=== PATIENT | female | born 1985 | race Caucasian/White ===

== ENCOUNTER → 2024-06-07 | Outpatient (CLI) | payer SELFPAY ==
--- OUTSIDE RECORDS SUMMARY | 2024-06-07 13:27 | XMS RPT_ITS | CCD ---
Author Organization [facility] Care Team Providers Care Outside Machinist Apprentice Name Role Phone GERARDO BLAS Unavailable Unavailable PEECHAKARA, SEENIA Unavailable Unavailable PEECHAKARA, SEENIA Unavailable Unavailable PEECHAKARA, SEENIA Unavailable Unavailable SHRAVAN JIMENEZ Attending Unavailable UpMary bergeron CNM Unavailable [phone] Nathaly Zhao LPN Unavailable Unavailable Pablito Arreola RN Unavailable Unavailable Unavailable Unavailable Unavailable Unavailable Allergies Allergy Classification Reported Allergen(s) Allergy Type Date of Onset Reaction(s) Facility (1 source) GLUTEN FLOUR; Translations: [GLUTEN FLOUR] Propensity to adverse reactions to food (disorder) 7 AOF [facility] Repository (2 sources) Gluten [facility], [facility]. Medications Current Medications Medication Drug Class(es) Dates Sig (Normalized) Sig (Original) Progesterone (4 sources) Progesterone Start: 05-25-2024 progesterone micronized (bulk) 100 % powder ; 400 Milligram vaginal at night before bed for 90 days Quantity: 90 {Suppository} Refills: 2 Ordered: 25-May-2024 ESTIVEN Schneider Start: 25-May-2024 Comments: patient would like bio identical progesterone suppository please Start: 11-01-2022 End: 05-24-2024 progesterone micronized (bul k) 100 % powder ; 100 Milligram as directed for 90 days Quantity: 90 {Suppository} Refills: 1 Ordered: 24-May-2024 VIVIANA Arreola Start: 01-Nov-2022 End: 24-May-2024 Status: Inactive Comments: patient would like bio identical progesterone suppository- this is a change in dose, patient going to use as directed Comment on above: patient would like b io identical progesterone suppository- this is a change in dose, patient going to use as directed patient would like b io identical progesterone suppository please Completed/Discontinued Medications Medication Drug Class(es) Dates Sig (Normalized) Sig (Original) 2 ml rho(d) immune globulin, human 750 unt/ml prefilled syringe (4 sources) Human Immunoglobulin G Start: 02-03-2023 End: 02-04-2023 rho(D) immune globulin 1,500 unit (300 mcg)/2 mL injection syringe ; 2 (two) mL one time dose for 1 days Quantity: 2 {Milliliter} Refills: 0 Ordered: 03-Feb-2023 Jennie ESTIVEN Crystal Tena Start: 03-Feb-2023 End: 04-Feb-2023 Status: Inactive Problems Active Problems Problem Classification Problem Date Documented Da te Episodic/Chronic Immunizations and screening for infectious disease (8 sources) Encounter for prophylactic Rho(D) immune globulin; Translations: [Need for prophylactic immunotherapy] 05-24-2024 Episodic Other complications of (8 sources) Diabetes insipidus; Translations: [Endocrine, nutritional and metabolic diseases complicating , unspecified trimester] 05-24-2024 Episodic Comment on above: diagnosed with last baby, no current symptoms Other complications of (20 sources) H/O: miscarriage; Translations: [Supervision of with other poor reproductive or obstetric history, unspecified trimester] 05-24-2024 Episodic Comment on above: previously used prog esterone supplement for low levels, wants level checked and supplement sent to [facility] (previously used) in [place] Other endocrine disorders (1 source) Diabetes insipidus; Translations: [Diabetes insipidus] Onset: 04-19-2017 Chronic Other female genital disorders (8 sources) Recurrent loss; 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 current ] 05-21-2022 Episodic Comment on above: states tested for cl otting disorders- negative Other infections; including parasitic (8 sources) History of Lyme disease; Translations: [Personal history of other infectious and parasitic diseases] 05-21-2022 Episodic Other nervous system disorders (8 sources) H/O: epilepsy; Translations: [Personal history of other diseases of the nervous system and sense organs] 05-21-2022 Episodic Other nutritional; endocrine; and metabolic disorders (8 sources) H/O: endocrine disorder; Translations: [Personal history of other endocrine, nutritional and metabolic disease] 05-21-2022 Episodic Comment on above: states dx with seria l testing by saliva and doctor Other screening for suspected conditions (not mental disorders or infectious disease) (20 sources) Thyroid hormone tests abnormal; Translations: [Other specified abnormal findings of blood chemistry] 05-24-2024 Episodic Comment on above: history of abnormal thyroid level, supplements taken Unclassified (4 sources) Abortions, spontaneous 05-24-2024 Comment on above: 9. 10. Unclassified (4 sources) Number of Children 05-24-2024 Comment on above: 5. 6. Unclassified (4 sources) Number of Pregnancies 05-24-2024 Comment on above: 15 17 Unclassified (4 sources) Vaginal deliveries 05-24-2024 Comment on above: 5. 6. 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 She is currently . States cycles are 28 days. Based on that her LMP would be around apr 22, but pt can't remember exact date. States yesterday would be first day of missed cycle. Denies any bleeding/spotting at this time. She is a G-15, P-5, A-9, L-5. Patient states she has lyme disease- untreated-states past the point of antibiotics, Adrenal insufficiency, and hx of gestational diabetes. States she has not had progesterone levels checked in over a year. 05-21-2022 Unclassified (3 sources) stock and station agent patient - History of low progesterone and miscarriage, wants progesterone supplementation for 05-24-2024 Results Test Name Value Interpretation Reference Range Facility PROGESTERONEon 05-25-2024 PROGESTERONE 31.4 ng/mL Normal [facility] Comment on above: Result Comment: Refe rence Ranges Female Follicular Phase < 1.0 Luteal Phase 2.6-21.5 Post menopausal < 0.5 1st Trimester 4.1-34.0 2nd Trimester 24.0-76.0 3rd Trimester 52.0-302.0 Performed By: #### 7 45 #### [facility] [address] [place] [address] Pe Teacher: Praful Machado MD No Panel Informationon 05-24 PROGESTERONE 31.4 ng/mL Normal [facility]. Laboratory - Chemistry and C hemistry - challengeon 06-18-2022 TSH Qn 2.88 m[IU]/L Normal [facility], [facility]. No Panel Informationon 06-18 PROGESTERONE 41.7 ng/mL Normal [facility]. No Panel Informationon 05-21 PROGESTERONE 2.9 ng/mL Normal [facility]. TSH W/REFLEX TO FT4 3.51 {mIU/L} Normal [facility]. Lead, Bloodon 11-15-2018 Lead, Blood <1.2 Normal 0.0-4.9 [facility] Comment on above: Performed By: #### L EAD2 #### [facility] Chemistry [address] [address] Arginine Vasopressinon 04-19 Arginine Vasopressin <0.5 Normal 0.0-6.9 [facility] Comment on above: Result Comment: (NOT E)INTERPRETIVE INFORMATION: Arginine Vasopressin HormoneTest developed and characteristics determined by [facility]. See Compliance Statement D: Crono/CSPerformed by [facility],[address] [place] [address] wgx.Crono, Jericho Gray MD, Lab. Director Performed By: #### A VAS ####[facility] [place], [place] [phone] CNNURSEon 04-19-2017 CNNURSE Nurse Visit (ENDOMN) -------RODGER LAUREANO ([id number]) 1985 FDate Time Provider Department04/19/17 8:30 AM NURSE ENDO MAIN ENDOMN During your visit today, we recorded the following information about you:Dafne Colorado RN, RN 04/19/2017 4:49 PM Signed Rodger Laureano is a 32 year old female presenting today for a WaterDeprivation test.Heparin lock established left arm with #22 angiocath.Patient supine for 30 minutes noBaseline ADH/sodium/osmolality drawn and unrine osmolaity collected at 9:30 AMTIME BP-P WEIGHT(KG) SERUMNA SERUM OSMO URINE VOL URINE OSMO9:30 AM 119/73-70 46.8 143 300 150 22244:30 AM 108/69-67 46.7 146 301 50 45142:30 AM 106/69-72 46.6 145 301 40 36035:30 PM 119/73-72 46.5 145 411 70 6400:30 PM 121/74-72 46.4 141 133 62 6001:30 PM 114/74-73 46.4 146 294 25 611Data above reviewed with Dr. Villatoro. Test may be stopped and patient senthome.Heparin lock D/C'd. Patient discharged home without complications at 3:00 PMSupervising Physician: Dr. Bianca Colorado, VIVIANAReferring Provider: ROHAN LAZARO V [[id number]]Allergies As of Date: 04/19/2017 Noted Allergy ReactionGLUTEN FLOUR 01/30/2017 16 - UnknownDate Reviewed: 04/19/2017Reviewed by: Dafne (Rn) VIVIANA Colorado - Fully AssessedPrimary Visit Diagnosis:Polyuria [R35.8]Order(s):SODIUM/NA BLD [SQNA] Order #: [id number]. #:[id number] OSMOLALITY BLD [SQOSM] Order #: [id number]. #:[id number] OSMOLALITY URINE [SQUOSM] Order #: [id number]. #:[id number] ADH/ARGININE VASOPRS [SQADH] Order #: [id number] FUTURE ADH/ARGININE VASOPRS [SQADH] Order #: [id number]. #:[id number] SODIUM/NA BLD [SQNA] Order #: [id number]. #:[id number] OSMOLALITY BLD [SQOSM] Order #: [id number]. #:[id number] OSMOLALITY URINE [SQUOSM] Order #: [id number]. #:[id number] SODIUM/NA BLD [SQNA] Order #: [id number]. #:[id number] OSMOLALITY BLD [SQOSM] Order #: [id number]. #:[id number] OSMOLALITY URINE [SQUOSM] Order #: [id number]. #:[id number] T4/FTI/T4U [XDC0ODO] Order #: [id number]. #:[id number] TSH BLD [SQTSH] Order #: [id number]. #:[id number] T4 FREE/FREE THYROX [SQFT4] Order #: [id number]. #:[id number] COMP METABOLIC PANEL [SQCMP] Order #: [id number] FUTURE OSMOLALITY URINE [SQUOSM] Order #: [id number]. #:[id number] OSMOLALITY BLD [SQOSM] Order #: [id number]. #:[id number] SODIUM/NA BLD [SQNA] Order #: [id number]. #:[id number] SODIUM/NA BLD [SQNA] Order #: [id number]. #:[id number] OSMOLALITY BLD [SQOSM] Order #: [id number]. #:[id number] OSMOLALITY URINE [SQUOSM] Order #: [id number]. #:[id number] SODIUM/NA BLD [SQNA] Order #: [id number]. #:[id number] OSMOLALITY BLD [SQOSM] Order #: [id number]. #:[id number] OSMOLALITY URINE [SQUOSM] Order #: [id number]. #:[id number] escriptions as of 04/19/2017 Sig: ORAL ELECTROLYTES ORAL Take by mouth. MULTIVITAMIN TABLET Take 1 tablet by mouth once d*Problem List As Of Date 04/19/2017 Noted Resolved Electrolyte abnormality [E87.8] INVALID FOR*01/31/2017 Hypokalemia [E87.6] INVALID FOR*01/31/2017 Hypomagnesemia [E83.42] INVALID FOR*01/31/2017 Hypocalcemia [E83.51] INVALID FOR*01/31/2017 Dizziness [R42] INVALID FOR*01/31/2017 Cerebral edema (HCC) [G93.6] INVALID FOR*01/31/2017 Breast feeding status of mother [Z39.1] INVALID FOR* Status:Closed by DAFNE COLORADO on 04/19/17 Normal [facility] Comp Metabolic Panelon 04-19 Alanine aminotransferase (ALT) 17 U/L Normal 7-38 [facility] Comment on above: Performed By: #### O SM, CMP, TSH, FT4, T4FTI ####[facility] [place], [place] [phone] Albumin 4.7 g/dL Normal 3.9-4.9 [facility] Comment on above: Performed By: #### O SM, CMP, TSH, FT4, T4FTI ####[facility] [address] [place], [place] [phone] Alkaline phosphatase (ALP) 63 U/L Normal 32-117 [facility] Comment on above: Performed By: #### O SM, CMP, TSH, FT4, T4FTI ####[facility], [place] [phone] Anion gap 20 mmol/L High 9-18 [facility] Comment on above: Performed By: #### O SM, CMP, TSH, FT4, T4FTI ####[place] [address] [phone] Aspartate aminotransferase (AST) 17 U/L Normal 13-35 [facility] Comment on above: Performed By: #### O SM, CMP, TSH, FT4, T4FTI ####[place] [address] [phone] Bilirubin (total) 0.7 mg/dL Normal 0.2-1.3 [facility] Comment on above: Performed By: #### O SM, CMP, TSH, FT4, T4FTI ####[place] [address] [address] [phone] Calcium 9.8 mg/dL Normal 8.5-10.2 [facility] Comment on above: Performed By: #### O SM, CMP, TSH, FT4, T4FTI ####[place] [address] [address] [phone] Chloride 99 mmol/L Normal 97-105 [facility] Comment on above: Performed By: #### O SM, CMP, TSH, FT4, T4FTI ####[place] [address] [address] [phone] CO2 26 mmol/L Normal 22-30 [facility] Comment on above: Performed By: #### O SM, CMP, TSH, FT4, T4FTI ####[place] [address] [address] [phone] Creatinine 0.68 mg/dL Normal 0.58-0.96 [facility] Comment on above: Performed By: #### O SM, CMP, TSH, FT4, T4FTI ####[place] [address] [address] [phone] eGFR (non-black) mL/min/{1.73_m2} Normal [facility] Comment on above: Performed By: #### O SM, CMP, TSH, FT4, T4FTI ####[facility], [place] [phone] Result Comment: eGFR (Estimated GFR) Units of measure: mL/min/1.73 meters squaredeGFR is derived from the reexpressed MDRD Study equation using the following parameters: serum creatinine, age, gender and race. The creatinine assay has been calibrated to be traceable to IDMS.An eGFR <60 mL/min/1.73m2 for >3 months is consistent with chronic kidney disease. Refer to KDOQI guidelines for clinical interpretation.In patients with unstable renal function, e.g. those with acute kidney injury, the eGFR may not accurately reflect actual GFR. Glucose mass conc 60 mg/dL Low 74-99 [facility] Comment on above: Result Comment: The [place] Diabetes Association (ADA) provides guidance for cutoff values for fasting glucose and random glucose. The ADA defines fasting as no caloric intake for at least 8 hours. Fasting plasma glucose results between 100 to 125 mg/dL indicate increased risk for diabetes (prediabetes).Fasting plasma glucose results greater than or equal to 126 mg/dL meet the criteria for diagnosis of diabetes. In the absence of unequivocal hyperglycemia, results should be confirmed by repeat testing. In a patient with classic symptoms of hyperglycemia or hyperglycemic crisis, random plasma glucose results greater than or equal to 200 mg/dL meet the criteria for diagnosis of diabetes.Reference: Standards of Medical Care in Diabetes 2016, [place] Diabetes Association. Diabetes Care. 2016.39(Suppl 1). Performed By: #### O SM, CMP, TSH, FT4, T4FTI ####[facility] [place], [place] [phone] Potassium molar conc 3.5 mmol/L Low 3.7-5.1 [facility] Comment on above: Performed By: #### O SM, CMP, TSH, FT4, T4FTI ####[facility] [place], [place] [phone] Protein 7.8 g/dL Normal 6.3-8.0 [facility] Comment on above: Performed By: #### O SM, CMP, TSH, FT4, T4FTI ####[place] [address] [address], [place] [phone] Sodium 145 mmol/L High 136-144 [facility] Comment on above: Performed By: #### O SM, CMP, TSH, FT4, T4FTI ####[address] [phone] Urea nitrogen 10 mg/dL Normal 7-21 [facility] Comment on above: Performed By: #### O SM, CMP, TSH, FT4, T4FTI ####[address] [phone] Folate, Serumon 04-19-2017 Folate, Serum >20.0 Normal >4.7 [facility] Comment on above: Result Comment: A re sult of > 20 ng/mL is not necessarilyindicative of a pathologic or treatablecondition: it reflects a limitation of thetest methodology.Assay reference range: 4.8 to 24.2 ng/mL.Suitable for detection of folate deficiency.Reference:Folate III (Folate III) [package insert V 1.0English].[facility], [place], [place]: June2015. Performed By: #### B 12, SERFOL ####[address] [phone]#### BIODIN ####[facility] [address] [place], [place] [phone] Free T4on 04-19-2017 Thyroxine (T4) free 1.4 ng/dL Normal 0.9-1.7 [facility] Comment on above: Performed By: #### O SM, CMP, TSH, FT4, T4FTI ####[address] [phone] Thyroxine (T4) free 1.3 ng/dL Normal 0.9-1.7 [facility] Comment on above: Performed By: #### N A, FT4, T4FTI, OSM, TSH ####[place] [address] [place], [place] [phone] Iodideon 04-19-2017 Iodide 75 ng/mL Normal 40-92 [facility] Comment on above: Result Comment: (NOT E) ADDITIONAL INFORMATION This test was developed and its performance characteristicsdetermined by [facility] in a manner consistent with CLIArequirements. This test has not been cleared or approved bythe U.S. Food and Drug Administration. Performed By: #### B 12, SERFOL ####[address] [phone]#### BIODIN ####[address] [place], [place] [phone] Osmolalityon 04-19-2017 Osmolality 294 mOsm/kg Normal 275-300 [facility] Comment on above: Performed By: #### O SM, CMP, TSH, FT4, T4FTI ####[address] [phone] Osmolality 294 mOsm/kg Normal 275-300 [facility] Comment on above: Performed By: #### N A, OSM ####[address] [phone] Osmolality 299 mOsm/kg Normal 275-300 [facility] Comment on above: Performed By: #### N A, OSM ####[address] [phone] Osmolality 301 mOsm/kg High 275-300 [facility] Comment on above: Performed By: #### N A, OSM ####[address] [phone] Osmolality 301 mOsm/kg High 275-300 [facility] Comment on above: Performed By: #### N A, FT4, T4FTI, OSM, TSH ####[place] [address] [address], [place] [phone] Osmolality 301 mOsm/kg High 275-300 [facility] Comment on above: Performed By: #### N A, OSM ####[place] [address] [address], [place] [phone] Osmolality 300 mOsm/kg Normal 275-300 [facility] Comment on above: Performed By: #### N A, OSM ####[place] [address] [address], [place] [phone] Osmolality, Urineon 04-19-20 17 Osmolality, Urine 585 mOsm/kg Normal 50-1200 [facility] Comment on above: Performed By: #### U OSM ####[place] [address], [place] [phone] Osmolality, Urine 611 mOsm/kg Normal 50-1200 [facility] Comment on above: Performed By: #### U OSM ####[place] [address] [address], [place] [phone] Osmolality, Urine 586 mOsm/kg Normal 50-1200 [facility] Comment on above: Performed By: #### U OSM ####[place] [address], [place] [phone] Osmolality, Urine 587 mOsm/kg Normal 50-1200 [facility] Comment on above: Performed By: #### U OSM ####[place] [address], [place] [phone] Osmolality, Urine 560 mOsm/kg Normal 50-1200 [facility] Comment on above: Performed By: #### U OSM ####[place] [address] [address], [place] [phone] Osmolality, Urine 530 mOsm/kg Normal 50-1200 [facility] Comment on above: Performed By: #### U OSM ####[facility] [address] [place], [place] [phone] Osmolality, Urine 451 mOsm/kg Normal 50-1200 [facility] Comment on above: Performed By: #### U OSM ####[facility] [address] [place], [place] [phone] PROGRESSon 04-19-2017 PROGRESS HNO ID: [id number] thor: Dafne (Rn) Miroslava, RNService: (none)Author Type: Registered NurseType: Progress NotesFiled: 04/19/2017 4:49 PMNote Text: Rodger Laureano is a 32 year old female presenting today for a WaterDeprivation test.Heparin lock established left arm with #22 angiocath.Patient supine for 30 minutes noBaseline ADH/sodium/osmolality drawn and unrine osmolaity collected at9:30 AMTIME BP-P WEIGHT(KG)SERUM NA SERUM OSMO URINE VOL URINE OSMO9:30 AM 119/73-70 46.8 143 300 150 96928:30 AM 108/69-67 46.7 146 301 50 28030:30 AM 106/69-72 46.6 145 301 40 77333:30 PM 119/73-72 46.5 145 758 71 1583:30 PM 121/74-72 46.4 141 283 28 0925:30 PM 114/74-73 46.4 146 294 25 611Data above reviewed with Dr. Villatoro. Test may be stopped and patientsent home.Heparin lock D/C'd. Patient discharged home without complications at 3:00PMSupervising Physician: Dr. Bianca [place], VIVIANA Normal [facility] PROGRESS HNO ID: [id number] thor: Noris Durbin: (none)Author Type: PhysicianType: Progress NotesFiled: 04/19/2017 9:33 AMNote Text:Patient of Dr. Araya for water deprivation testIs having menstrual periodI contacted labor relations analyst - protein and carbohydrates from menstrual flowmight affect urine osm, not sure to what degreeI informed Dr. Peechakara and patientBecause of traveling distance and insurance, decision was to go ahead andproceed with water deprivation test Normal [facility] Sodiumon 04-19-2017 Sodium 146 mmol/L High 136-144 [facility] Comment on above: Performed By: #### N A, OSM ####[place] [address] [address] [place] [phone] Sodium 141 mmol/L Normal 136-144 [facility] Comment on above: Performed By: #### N A, OSM ####[place] [address] [address] [place] [phone] Sodium 145 mmol/L High 136-144 [facility] Comment on above: Performed By: #### N A, OSM ####[place] [address] [address] [place] [phone] Sodium 145 mmol/L High 136-144 [facility] Comment on above: Performed By: #### N A, FT4, T4FTI, OSM, TSH ####[place] [address] [address] [place] [phone] Sodium 146 mmol/L High 136-144 [facility] Comment on above: Performed By: #### N A, OSM ####[place] [phone] Sodium 143 mmol/L Normal 136-144 [facility] Comment on above: Performed By: #### N A, OSM ####[place] [phone] T4/FTIon 04-19-2017 FTI 7.3 ug/dL Normal 5.3-10.8 [facility] Comment on above: Performed By: #### O SM, CMP, TSH, FT4, T4FTI ####[place] [address] [place] [phone] T4 7.1 ug/dL Normal 5.5-10.2 [facility] Comment on above: Performed By: #### O SM, CMP, TSH, FT4, T4FTI ####[address] [phone] T4 Uptake 0.97 Normal 0.91-1.19 [facility] Comment on above: Performed By: #### O SM, CMP, TSH, FT4, T4FTI ####[place] [phone] FTI 6.5 ug/dL Normal 5.3-10.8 [facility] Comment on above: Performed By: #### N A, FT4, T4FTI, OSM, TSH ####[place] [phone] T4 6.4 ug/dL Normal 5.5-10.2 [facility] Comment on above: Performed By: #### N A, FT4, T4FTI, OSM, TSH ####[place] [phone] T4 Uptake 0.98 Normal 0.91-1.19 [facility] Comment on above: Performed By: #### N A, FT4, T4FTI, OSM, TSH ####[address] [phone] TSHon 04-19-2017 Thyroid stimulating hormone (TSH) 1.190 uU/mL Normal 0.400-5.500 [facility] Comment on above: Result Comment: If t he patient is , TSH reference range varies by gestational period:First Trimester 0.100-2.500 uU/mLSecond Trimester 0.200-3.000 uU/mLThird Trimester 0.300-3.000 uU/mLReferences: 1. Berger, Cristofer M, Soren BRONSON, et al. Management of Thyroid Dysfunction during and : An Endocrine Society Clinical Practice Guideline. J Clin Endocrinol Metab, 2012:97:6139-0127. 2. Noe GARDNER. Overview of thyroid disease in . UpToDate. 2015. Accessed on January 23, 2016. Performed By: #### O SM, CMP, TSH, FT4, T4FTI ####[address] [id number] [place], [place] [phone] Thyroid stimulating hormone (TSH) 1.390 uU/mL Normal 0.400-5.500 [facility] Comment on above: Result Comment: If t he patient is , TSH reference range varies by gestational period:First Trimester 0.100-2.500 uU/mLSecond Trimester 0.200-3.000 uU/mLThird Trimester 0.300-3.000 uU/mLReferences: 1. Novak L, Cristofer M, Soren BRONSON, et al. Management of Thyroid Dysfunction during and : An Endocrine Society Clinical Practice Guideline. J Clin Endocrinol Metab, 2012:97:3316-6279. 2. Noe GARDNER. Overview of thyroid disease in . . 2015. Accessed on January 23, 2016. Performed By: #### N A, FT4, T4FTI, OSM, TSH ####[id number] [place], [place] [phone] Vitamin B12on 04-19-2017 Cobalamins (Vitamin B12) 1757 pg/mL High 211-946 [facility] Comment on above: Performed By: #### B 12, SERFOL ####[id number] [place], [place] [phone]#### BIODIN ####[address] [place] [phone] CNOVon 03-18-2017 CNOV Office Visit (STED) -----RODGER LAUREANO ([id number]) 1985 FDate Time Provider Department03/18/17 11:40 AM ROHAN LAZARO During your visit today, we recorded the following information about you: Temperature Pulse Respiration Blood pressure 98.5 degrees 79/minute 18/minute 111/68 Weight Last Period 49.4 kg 02/15/17Ernestine Graham Ma 03/18/2017 11:30 AM [facility] [phone] HOURS: Lab is open 7:30am to 6:00pm , 7:30am to 5:00pm Fridays and open8:00am-12:00pm on Saturdays.PHARMACY HOURS: Tuesday through Tuesday 8:00am - 6:00pm.Routine Lab Orders 60 days after they are entered. If your lab ordersexpire, you may be required to wait in the lab while they are reinstatedFUTURE ORDERS are lab tests to be completed on the ?EXPECTED? date. Theseorders 60 days after the expected date.STANDING ORDERS are recurring orders with an expiration date. The intervalwill indicate how often the test should be completed.FASTING LAB means nothing to eat or drink (except water) 10-12 hours beforeyour blood is drawn.Rohan Lazaro MD 03/18/2017 12:51 PM SignedNEW PATIENTConsulted by: Dr Latif Complaint: Concern for possible Diabetes insipidusHPI: This is a 32 year old female who presents with polyuria and polydipsiaand dizzinessShe has 5 kids : 6, 5, 3, 18 months, 4 monthsMiscarriages in betweenNursing for all of them all alongRegular periods -- starts back 1-2 months after child birthDuration for above complaints : feels going on since she started having kidsSeverity:moderate getting severeAssociated symptoms: dizzinessmodifying factors:Fluid intake per day: she brought detailed chart logging her fluid intake andurine output 24 hr that she did at homeUrine out put/frequency per day: she drinks to thirst, room temp water.Gets up 2-3 times at night to go to bathroom as she feels bladder is too fullAug 1st ANDamp;2nd12 L in ---ANDgt; 13L outAug 9 ANDamp;10 (as seked to restrict fluid to 1.5 gallos per day her herphysician)5 L in and 7 L outAug 10ANDamp;1112 L in and 12 L outH/o granulomatous disease:noH/o brain surgery/trauma: noAny overt he counter supplements: pre natals , Vit D, Adrenal compound for 1year as she was told her cortisol elvels were low and was started on itFamily hisotry:not significantPAST MEDICAL HISTORY:PAST MEDICAL HISTORYDiagnosis Date- PolyuriaPAST SURGICAL HISTORY: PAST SURGICAL HISTORYNo date: NONEFAMILY HISTORY:FAMILY HISTORY Other [OTHER] Father Comment: Father had a heart valve surgerySOCIAL HISTORY:Social HistorySubstance Use Topics- Smoking status: Never Smoker- Smokeless tobacco: Not on file- Alcohol use Not on fileMEDICATIONS:Current Outpatient Prescriptions:ORAL ELECTROLYTES ORAL Take by mouth.multivitamin tablet Take 1 tablet by mouth once daily.iv contrast (radiology procedure) MRI Pituitary Inject, intravenously, oncefor 1 dose. No IV access, insert saline lock prior to the beginning ofsedation, infusion, injection of imaging exam. Discontinue saline lock postexam. If Pt. has a central line or IVAD, may access for administrationaccording to line specific nursing protocol. Once exam is complete flush lineand de-access according to line specific nursing protocol in the MR contrastadministration guidelines link.No current facility-administered medications for this visit.ALLERGIES:ALLERGIESAl lergen Reactions- Gluten Flour UnknownREVIEW OF SYSTEMS:GENERAL: No weight loss, malaise or feversHEENT: Negative for frequent or significant headaches, SEE HPIRESPIRATORY: Negative for cough, hemoptysis, wheezing, COPD, dyspnea orshortness of breathCARDIOVASCULAR: Negative for chest pain, leg swelling, hypertension, CHF orpalpitationsMUSCULOSKELET AL: Negative for joint pain or swelling, back pain or muscle painSKIN: Negative for lesions, rash, and itchingENDOCRINE: Negative for cold or heat intolerance, polyuria, polydipsia andgoiterNEURO: No history of headaches, syncope, paralysis, seizures or tremorsAll other reviewed and negative other than HPI.She reports muscle aches and joint aches in the past but resolved nowPHYSICAL EXAM:BP 111/68 (BP Site: Right Arm, BP Position: Sitting, BP Cuff Size: RegularAdult) Pulse 79 Temp 36.9 ?C (98.5 ?F) (Oral) Resp 18 Wt 49.4 kg (109lb) LMP 02/15/2017 (Approximate) BMI 20.6 kg/m2Body mass index is 20.6 kg/(m2).General Appearance: Well appearing, alert, in no acute distress, well-hydrated,well nourished..Skin: Skin color, texture, turgor normal, no suspicious rashes or lesions.Eyes: Anicteric sclera. Pupils are equally round and reactive to light.Extraocular movements are intact. .Neck: Supple, no adenopathy; thyroid symmetric, normal size, no bruits.Lungs: Lungs clear to auscultation. No wheezing, rhonchi, rales.Heart: RRR without murmur, gallop, or rubs. No ectopy.Abdomen: Normal abdominal exam, Abdomen soft, non-tender. Bowel sounds normal.No masses, organomegaly.Extremities: No deformities, edema, skin discoloration, clubbing or cyanosis.Good capillary refill. .Musculoskeletal: No joint swelling, deformity, or tenderness.Peripheral Pulses: Normal.Neurologic: Gait normal. Reflexes normal and symmetric. Sensation grosslyintact..LAB:TSH (uU/mL)Date Value04/07/2015 3.710 ]Hemoglobin (g/dL)Date Value01/31/2017 14.6 Hematocrit (%)Date Value01/31/2017 43.9 WBC (k/uL)Date Value01/31/2017 9.57 Platelet Count (k/uL)Date Value01/31/2017 321 Potassium (mmol/L)Date Value01/31/2017 3.4 Sodium (mmol/L)Date Value01/31/2017 143 Magnesium (mg/dL)Date Value01/30/2017 2.3 Creatinine (mg/dL)Date Value01/31/2017 0.79 BUN (mg/dL)Date Value01/31/2017 8 Glucose (mg/dL)Date Value01/31/2017 100 No results found for: CHOL, HDL, LDL, TGNo results found for: RJF5OPm components found for: TESTOAST (U/L)Date Value01/31/2017 20 ALT (U/L)Date Value01/31/2017 28 ] Radiology:reviewed CT brain Other: reviewed work up while in hospita;Component Latest Ref Rng ANDamp; Units 01/30/2017Cortisol Basal ug/dL 6.4Cortisol 30 min ug/dL 24.8Cortisol 60 min ug/dL 30.8Interpretation (ACTHST) A peak value of at least 18 ug/dL is a normal responseto cortrosyn stimulation.Component Latest Ref Rng ANDamp; Units 01/31/2017Albumin 3.9 - 4.9 g/dL 5.1 (H)Calcium 8.5 - 10.2 mg/dL 9.9Bilirubin, Total 0.2 - 1.3 mg/dL 0.6Alkaline Phosphatase 32 - 117 U/L 72AST 13 - 35 U/L 20Glucose 74 - 99 mg/dL 100 (H)BUN 7 - 21 mg/dL 8Creatinine 0.58 - 0.96 mg/dL 0.79Sodium 136 - 144 mmol/L 143Potassium 3.7 - 5.1 mmol/L 3.4 (L)Chloride 97 - 105 mmol/L 99CO2 22 - 30 mmol/L 26Anion Gap 9 - 18 mmol/L 18ALT 7 - 38 U/L 28eGFR- ANDgt;60eGFR-All Other Races . ANDgt;60WBC 3.70 - 11.00 k/uL 9.57RBC 3.90 - 5.20 m/uL 4.66Hemoglobin 11.5 - 15.5 g/dL 14.6Hematocrit 36.0 - 46.0 % 43.9MCV 80.0 - 100.0 fL 94.2MCH 26.0 - 34.0 pG 31.3MCHC 30.5 - 36.0 g/dL 33.3RDW-CV 11.5 - 15.0 % 12.9Platelet Count 150 - 400 k/uL 321MPV 9.0 - 12.7 fL 9.8Absolute nRBC 0.00 k/uL 0.00Period hrUrine Volume 24 hour mLCollection Start DateCollection Start TimeCollection End DateCollection End TimeCalcium, Urine Timed 4.2 - 12.5 mg/hrSodium, Urine Timed 2 - 9 mmol/hrPotassium, Urine Timed 1 - 4 mmol/hrMagnesium, 24 Hr Urine 12.0 - 291.0 mg/24 HoursCreatinine, Urine Timed 0.03 - 0.08 g/hrOsmolality 275 - 300 mOsm/kg 293ASSESSMENT :32 year old female with symtoms and signs suspicious for:Possible differentials are primary polydipsia Versus partial diabetesinsipidus secondary to multiple pregnanciesOf significance urine osm was 75 with serum osm of 293Had put out 7L urine while in the hospital--water access was not restricted atthe timeNo known renal issuesRECOMMENDATION:1Water deprivation test--to be arranged at main campus2 labs as ordered3 MRI pitFOLLOW UP:TBDAdvised patient that I will call or send letter re: lab results or release labresults via JumpStarthart If patient does not hear from me regarding lab resultswithin 1-2 weeks of having them obtained, patient is to call me.The patient is to continue to follow up with his/her PCP and with otherconsultants regarding his/her other medical problems.I will communicate by either mailing or electronically routing a copy oftoday's office note to the primary care physician Gerardo Blas andconsulting physician Cheryl Cota Provider: SELF [200]Allergies As of Date: 03/18/2017 Noted Allergy ReactionGLUTEN FLOUR 01/30/2017 16 - UnknownDate Reviewed: 03/18/2017Reviewed by: Ernestine Graham Ma - Fully AssessedReason for Visit: New Patient [172] Cmt: rule out diabetes insipidusPrimary Visit Diagnosis: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 No IV access, insert saline lock prior to the beginning of sedation, infusion, injection of imaging exam. Discontinue saline lock post exam. If Pt. has a central line or IVAD, may access for administration according to line specific nursing protocol. Once exam is complete flush line and de-access according to line specific nursing protocol in the MR contrast administration guidelines link.Disp: 1 EachRfl: 0 TSH BLD [SQTSH] Order #: [id number] FUTURE T4 FREE/FREE THYROX [SQFT4] Order #: [id number] FUTURE T4/FTI/T4U [QZB7TVW] Order #: [id number] FUTURE COMP METABOLIC PANEL [SQCMP] Order #: [id number] FUTURE OSMOLALITY BLD [SQOSM] Order #: [id number] FUTURE OSMOLALITY URINE [SQUOSM] Order #: [id number] FUTUREPrescriptions as of 03/18/2017 Sig: ORAL ELECTROLYTES ORAL Take by mouth. MULTIVITAMIN TABLET Take 1 tablet by mouth once d* IV CONTRAST (RADIOLOGY PROCED* MRI Pituitary Inject, intrave*Problem List As Of Date 03/18/2017 Noted Resolved Electrolyte abnormality [E87.8] INVALID FOR*01/31/2017 Hypokalemia [E87.6] INVALID FOR*01/31/2017 Hypomagnesemia [E83.42] INVALID FOR*01/31/2017 Hypocalcemia [E83.51] INVALID FOR*01/31/2017 Dizziness [R42] INVALID FOR*01/31/2017 Cerebral edema (HCC) [G93.6] INVALID FOR*01/31/2017 Breast feeding status of mother [Z39.1] INVALID FOR* Other instructions from your clinician: [facility] FACTS [phone] LAB HOURS: Lab is open 7:30am to 6:00pm , 7:30am to 5:00pm Fridays and open 8:00am-12:00pm on Saturdays. PHARMACY HOURS: Tuesday through Tuesday 8:00am - 6:00pm. Routine Lab Orders 60 days after they are entered. If your lab orders , you may be required to wait in the lab while they are reinstated FUTURE ORDERS are lab tests to be completed on the ?EXPECTED? date. These orders 60 days after the expected date. STANDING ORDERS are recurring orders with an expiration date. The interval will indicate how often the test should be completed. FASTING LAB means nothing to eat or drink (except water) 10-12 hours before your blood is drawn.Prescriptions ordered this encounter Disp Refills Start End IV CONTRAST (RADIOLOGY PROCEDURE) 1 Ea* 0 03/18/2017 03/19/2017 Class: In Office Sig: MRI Pituitary Inject, intravenously, once for 1 dose. No IV access, insert saline lock prior to the beginning of sedation, infusion, injection of imaging exam. Discontinue saline lock post exam. If Pt. has a central line or IVAD, may access for administration according to line specific nursing protocol. Once exam is complete flush line and de-access according to line specific nursing protocol in the MR contrast administration guidelines link.Follow-up and Disposition History RecordedLetter Lindamitalilenin Mack Georgi for the Release of Medical InformationFrom Other Healthcare FacilitiesPatient's Name: Claytontamanna Giron Georgi #: [id number] #: [id number] Date of : 1985Telephone Number: [phone] (home) Address: [address] [place], [place] [address]Current Address of Physician:Name: ___Street: ___City: State: Zip: Physician's Telephone #: Reason for Disclosure: (Reason for disclosure must be completed prior to processing)Past Dates of Treatment: _Release Medical Information to: MAIL INFORMATION TO:Dr. Rohan CleaningAl[facility]any [facility] [place], [place] [address]Pzhanjnmo: [phone] i hereby authorize to release the health informationindicated below that is contained in my patient records to [facility]. I understand and acknowledge that this may includetreatment for physical and mental illness, alcohol/drug abuse, and/orHIV/AIDS test results or diagnoses. This authorization does not includepermission to release outpatient Psychotherapy Notes (*) as defined below.The release of Psychotherapy Notes requires a separate authorization.*Psychotherap y Notes are defined as notes that document private, joint,group, or family counseling sessions that are from the rest of apatient?s medical record. Emergency Department Reports Pathology Reports Discharge Summary Laboratory Reports History AND Physical EMG Reports EKGs Oper ative Reports Physical/Occup ations Therapy Report x_Other(Specify)allThi s consent is subject to revocation at any time except to the extent theaction has been taken thereon.This authorization and consent will one year from the date ofauthorization written below.Your health care (or payment for care) will not be affected by whether or notyou sign this authorization. Once your health care information is released,redisclosure of your health care information by the Recipient may no longerbe protected by law.Signature of Patient/Legal Guardian: Printe d Name: Date: Re lationship if other than Patient: If other than patient's signature, a copy of legal paperwork verifying thepatient's personal real estate representative MUST accompany the request (i.e.. Courtappointed guardian, durable power pc technician for health care). For a deceasedpatient: A certificate coupled with executor or records administrator of estatepaperwork must accompany authorization. Exception: parent signing for patientunder the age of 18.For a patient, a court entry or order appointing a fiduciary,executor, or records administrator or letters of appointment received from ProbateCourt must accompany an authorization signed by the ,ed individual. If theestate has not been probated, a certificate is required coupled withthe documents naming the records administrator or executor of the estate. Revision:08/30/2011Encounter Number: [id number] Status:Closed by ROHAN LAZARO MD on 03/18/17 [facility] PROGRESSon 03-18-2017 PROGRESS HNO ID: [id number] thor: KIM Arroyoervice: (none)Author Type: PhysicianType: Progress NotesFiled: 03/18/2017 12:51 PMNote Text:NEW PATIENTConsulted by: Dr Latif Complaint: Concern for possible Diabetes insipidusHPI: This is a 32 year old female who presents with polyuria andpolydipsia and dizzinessShe has 5 kids : 6, 5, 3, 18 months, 4 monthsMiscarriages in betweenNursing for all of them all alongRegular periods -- starts back 1-2 months after child birthDuration for above complaints : feels going on since she started havingkidsSeverity:moderate getting severeAssociated symptoms: dizzinessmodifying factors:Fluid intake per day: she brought detailed chart logging her fluid intakeand urine output 24 hr that she did at homeUrine out put/frequency per day: she drinks to thirst, room temp water.Gets up 2-3 times at night to go to bathroom as she feels bladder is toofullAug 1st [id number] L in ---> 13L outAug 9 AND10 (as seked to restrict fluid to 1.5 gallos per day her herphysician)5 L in and 7 L outAug [id number] L in and 12 L outH/o granulomatous disease:noH/o brain surgery/trauma: noAny overt he counter supplements: pre natals , Vit D, Adrenal compound for1 year as she was told her cortisol elvels were low and was started on itFamily hisotry:not significantPAST MEDICAL HISTORY:PAST MEDICAL HISTORYDiagnosis Date- PolyuriaPAST SURGICAL HISTORY: PAST SURGICAL HISTORYNo date: NONEFAMILY HISTORY:FAMILY HISTORY Other [OTHER] Father Comment: Father had a heart valve surgerySOCIAL HISTORY:Social HistorySubstance Use Topics- Smoking status: Never Smoker- Smokeless tobacco: Not on file- Alcohol use Not on fileMEDICATIONS:Current Outpatient Prescriptions:ORAL ELECTROLYTES ORAL Take by mouth.multivitamin tablet Take 1 tablet by mouth once daily.iv contrast (radiology procedure) MRI Pituitary Inject, intravenously,once for 1 dose. No IV access, insert saline lock prior to the beginningof sedation, infusion, injection of imaging exam. Discontinue saline lockpost exam. If Pt. has a central line or IVAD, may access foradministration according to line specific nursing protocol. Once exam iscomplete flush line and de-access according to line specific nursingprotocol in the MR contrast administration guidelines link.No current facility-administered medications for this visit.ALLERGIES:ALLERGIESAl lergen Reactions- Gluten Flour UnknownREVIEW OF SYSTEMS:GENERAL: No weight loss, malaise or feversHEENT: Negative for frequent or significant headaches, SEE HPIRESPIRATORY: Negative for cough, hemoptysis, wheezing, COPD, dyspnea orshortness of breathCARDIOVASCULAR: Negative for chest pain, leg swelling, hypertension, CHFor palpitationsMUSCULOSKELETAL : Negative for joint pain or swelling, back pain or musclepainSKIN: Negative for lesions, rash, and itchingENDOCRINE: Negative for cold or heat intolerance, polyuria, polydipsia andgoiterNEURO: No history of headaches, syncope, paralysis, seizures or tremorsAll other reviewed and negative other than HPI.She reports muscle aches and joint aches in the past but resolved nowPHYSICAL EXAM:BP 111/68 (BP Site: Right Arm, BP Position: Sitting, BP Cuff Size: RegularAdult) Pulse 79 Temp 36.9 ?C (98.5 ?F) (Oral) Resp 18 Wt 49.4 kg(109 lb) LMP 02/15/2017 (Approximate) BMI 20.6 kg/m2Body mass index is 20.6 kg/(m2).General Appearance: Well appearing, alert, in no acute distress,well-hydrated, well nourished..Skin: Skin color, texture, turgor normal, no suspicious rashes or lesions.Eyes: Anicteric sclera. Pupils are equally round and reactive to light.Extraocular movements are intact. .Neck: Supple, no adenopathy; thyroid symmetric, normal size, no bruits.Lungs: Lungs clear to auscultation. No wheezing, rhonchi, rales.Heart: RRR without murmur, gallop, or rubs. No ectopy.Abdomen: Normal abdominal exam, Abdomen soft, non-tender. Bowel soundsnormal. No masses, organomegaly.Extremities: No deformities, edema, skin discoloration, clubbing orcyanosis. Good capillary refill. .Musculoskeletal: No joint swelling, deformity, or tenderness.Peripheral Pulses: Normal.Neurologic: Gait normal. Reflexes normal and symmetric. Sensation grosslyintact..LAB:TSH (uU/mL)Date Value04/07/2015 3.710 ]Hemoglobin (g/dL)Date Value01/31/2017 14.6 Hematocrit (%)Date Value01/31/2017 43.9 WBC (k/uL)Date Value01/31/2017 9.57 Platelet Count (k/uL)Date Value01/31/2017 321 Potassium (mmol/L)Date Value01/31/2017 3.4 Sodium (mmol/L)Date Value01/31/2017 143 Magnesium (mg/dL)Date Value01/30/2017 2.3 Creatinine (mg/dL)Date Value01/31/2017 0.79 BUN (mg/dL)Date Value01/31/2017 8 Glucose (mg/dL)Date Value01/31/2017 100 No results found for: CHOL, HDL, LDL, TGNo results found for: QUF6VRx components found for: TESTOAST (U/L)Date Value01/31/2017 20 ALT (U/L)Date Value01/31/2017 28 ] Radiology:reviewed CT brain Other: reviewed work up while in hospita;Component Latest Ref Rng AND Units 01/30/2017Cortisol Basal ug/dL 6.4Cortisol 30 min ug/dL 24.8Cortisol 60 min ug/dL 30.8Interpretation (ACTHST) A peak value of at least 18 ug/dL is a normalresponse to cortrosyn stimulation.Component Latest Ref Rng AND Units 01/31/2017Albumin 3.9 - 4.9 g/dL 5.1 (H)Calcium 8.5 - 10.2 mg/dL 9.9Bilirubin, Total 0.2 - 1.3 mg/dL 0.6Alkaline Phosphatase 32 - 117 U/L 72AST 13 - 35 U/L 20Glucose 74 - 99 mg/dL 100 (H)BUN 7 - 21 mg/dL 8Creatinine 0.58 - 0.96 mg/dL 0.79Sodium 136 - 144 mmol/L 143Potassium 3.7 - 5.1 mmol/L 3.4 (L)Chloride 97 - 105 mmol/L 99CO2 22 - 30 mmol/L 26Anion Gap 9 - 18 mmol/L 18ALT 7 - 38 U/L 28eGFR- >60eGFR-All Other Races . >60WBC 3.70 - 11.00 k/uL 9.57RBC 3.90 - 5.20 m/uL 4.66Hemoglobin 11.5 - 15.5 g/dL 14.6Hematocrit 36.0 - 46.0 % 43.9MCV 80.0 - 100.0 fL 94.2MCH 26.0 - 34.0 pG 31.3MCHC 30.5 - 36.0 g/dL 33.3RDW-CV 11.5 - 15.0 % 12.9Platelet Count 150 - 400 k/uL 321MPV 9.0 - 12.7 fL 9.8Absolute nRBC 0.00 k/uL 0.00Period hrUrine Volume 24 hour mLCollection Start DateCollection Start TimeCollection End DateCollection End TimeCalcium, Urine Timed 4.2 - 12.5 mg/hrSodium, Urine Timed 2 - 9 mmol/hrPotassium, Urine Timed 1 - 4 mmol/hrMagnesium, 24 Hr Urine 12.0 - 291.0 mg/24 HoursCreatinine, Urine Timed 0.03 - 0.08 g/hrOsmolality 275 - 300 mOsm/kg 293ASSESSMENT :32 year old female with symtoms and signs suspicious for:Possible differentials are primary polydipsia Versus partial diabetesinsipidus secondary to multiple pregnanciesOf significance urine osm was 75 with serum osm of 293Had put out 7L urine while in the hospital--water access was notrestricted at the timeNo known renal issuesRECOMMENDATION:1Water deprivation test--to be arranged at main campus2 labs as ordered3 MRI pitFOLLOW UP:TBDAdvised patient that I will call or send letter re: lab results or releaselab results via trend.ly If patient does not hear from me regarding labresults within 1-2 weeks of having them obtained, patient is to call me.The patient is to continue to follow up with his/her PCP and with otherconsultants regarding his/her other medical problems.I will communicate by either mailing or electronically routing a copy oftoday's office note to the primary care physician Gerardo Blas andconsulting physician Cheryl Lazaro M.D Normal [facility] MRI BRAIN WO/W IVCONon 03-02 MRI BRAIN WO/W IVCON * * *Final Report* * *DATE OF EXAM: Mar 02 2017 10:00AM [facility] [id number] - MRI BRAIN WO/W IVCON / REASON: brain mri * * * * Physician Interpretation * * * * MR BRAIN WITH CONTRASTHISTORY: DizzinessTECHNIQUE: MR imaging of the brain using the sella protocol was performed with 5 cc Dotarem intravenous contrast.COMPARISON: None.RESULT:The pituitary gland is within normal limits of size, configuration, and signal intensity characteristics. There is uniform enhancement of the adenohypophysis following gadolinium administration. There is no evidence of a mass within the sella or overlying suprasellar cistern. The neurohypophysis is normal in position. The infundibulum is intact. The overlying hypothalamus and optic apparatus are within normal limits. Visualized portions of parenchymal and skull base appear unremarkable.IMPRESSION: Unremarkable examTranscriptionist: LINDSAY Transcribe Date/Time: Mar 02 2017 10:11ADictated by : PEYMAN FELIX MDThigabo examination was interpreted and the report reviewed and electronically signed by: PEYMAN FELIX MD on Mar 02 2017 10:15AM EST Normal [facility] PROGRESSon 03-02-2017 PROGRESS HNO ID: [id number] thor: Delmis Rodriguez RtService: (none)Author Type: (none)Type: Progress NotesFiled: 03/02/2017 9:54 AMNote Text: Radiology Service Progress NotePATIENT NAME: Rodger Giron ImhoffMRN: [id number] OF SERVICE: March 02, 2017TIME: 9:52 AMPATIENT IDENTITY VERIFICATION COMPLETED USING TWO (2) METHODS: Patientconfirmed name verbally and Date of .PATIENT GENDER DATA: Female. status: status:Yes status: NO.PATIENT RELEVANT IMPLANT DATA REVIEWED: YesCONTRAST INDUCED NEPHROPATHY RISK FACTORS: Not applicableCREATININE:Creati nineDate Value Ref Range Erkxzk3401/31/2017 0.79 0.58 - 0.96 mg/dL Final01/30/2017 0.59 0.58 - 0.96 mg/dL Final04/07/2015 0.57 (L) 0.70 - 1.40 mg/dL Final eGFR-All Other RacesDate Value Ref Range Fmaljo5401/31/2017 >60 . FinalComment:eGFR (Estimated GFR) Units of measure: mL/min/1.73 meters squaredeGFR is derived from the reexpressed MDRD Study equation using thefollowingparameters: serum creatinine, age, gender and race. The creatinine assayhasbeen calibrated to be traceable to IDMS.An eGFR <60 mL/min/1.73m2 for >3 months is consistent with chronic kidneydisease. Refer to KDOQI guidelines for clinical interpretation.In patients with unstable renal function, e.g. those with acute kidneyinjury,the eGFR may not accurately reflect actual GFR. eGFR- AmericanDate Value Ref Range Kzwqtz9801/31/2017 >60 Final P.O.C.T. RESULTS: N/A March 02, 2017REFERENCE RANGE:Reference range (age 0-9 years) 0.30 - 1.00 mg/dLReference range (age 10-14 years) 0.30 - 1.20 mg/dLReference range (age 15-18 years) 0.40 - 1.30 mg/dLReference range (age 19-99 years ) 0.70-1.40 mg/dLCALCULATED GFR: naRADIOLOGIST NOTIFIED?: NoALLERGIES: Reviewed and unchangedCONTRAST ALLERGY: NO.PERIPHERAL IV ACCESS: Ambulatory: IV type: A peripheral IV was startedin the Right antecubital site with a Angio cath/Butterfly: 22 gauge.,Site assessment: Clean,Dry and Intact, Site disposition DiscontinuedRADIOLOGY DEPARTMENT: MR; Exam(s) Completed: Head: PituitarySIGNED BY: Delmis Rodriguez RtJuly 2016 9:52 AM Normal [facility] Vital Signs Date Time Vital Sign Value Performing Clinician Ron [email or web address] 05-24-2024 13:47-0400 Body height 157.48 cm Pablito Arreola RN [employer]. 05-24-2024 13:47-0400 Body mass index (BMI) [Ratio] 21.58 kg/m2 Pablito Arreola RN [employer]. 05-24-2024 13:47-0400 Body surface area Derived from formula 1.53 m2 Pablito Arreola RN [employer]. 05-24-2024 13:47-0400 Body weight 53.52 kg Pablito Arreola RN [employer]. 05-24-2024 13:47-0400 Diastolic blood pressure 70 mm[Hg] Pablito Arreola RN [employer]. Comment on above: Patient Position: Si tting; Cuff Location: Left Arm; Cuff Size: Standard 05-24-2024 13:47-0400 Heart rate 81 /min Pablito Arreola RN [employer]. Comment on above: Pattern: Regular 05-24-2024 13:47-0400 Systolic blood pressure 132 mm[Hg] Pablito Arreola RN [employer]. Comment on above: Patient Position: Si tting; Cuff Location: Left Arm; Cuff Size: Standard 05-21-2022 14:18-0400 Body height 157.48 cm Marion Vargas LPN [employer]. 05-21-2022 14:18-0400 Body mass index (BMI) [Ratio] 18.11 kg/m2 Marion Vargas LPN [employer]. 05-21-2022 14:18-0400 Body surface area Derived from formula 1.42 m2 Marion Vargas LPN [employer]. 05-21-2022 14:18-0400 Body weight 44.91 kg Marionloy Thakurtameka GONZALEZ [facility], [facility].; [employer], [employer]. 05-21-2022 14:18-0400 Diastolic blood pressure 77 mm[Hg] Marion Vargas LPN [employer] [facility], [facility].; [employer], [employer]. Comment on above: Patient Position: Si tting; Cuff Location: Left Arm; Cuff Size: Standard 05-21-2022 14:18-0400 Heart rate 81 /min Marion Vargas LPN [employer] [facility], [employer].; [employer], [employer]. Comment on above: Pattern: Regular 05-21-2022 14:18-0400 Systolic blood pressure 114 mm[Hg] Marionloy Thakurtameka GONZALEZ [employer] [facility], [employer].; [employer], [employer]. Comment on above: Patient Position: Si tting; Cuff Location: Left Arm; Cuff Size: Standard Encounters Encounter Date Encounter Type Care Provider Facility Start: 05-25-2024 End: 05-25-2024 Orders Crystal Uptain CNM Work Phone[facility] [employer] [facility] Start: 05-24-2024 Review Crystal Uptain CNM Work Phone: [employer] [facility] Start: 05-24-2024 End: 05-24-2024 Annotation/Addendum Crystal Uptain CNM Work Phone: [employer]. Start: 05-24-2024 End: 05-24-2024 Office outpatient visit 10 minutes Crystal Uptain CNM Work Phone: [employer]. Start: 05-24-2024 Patient encounter procedure Crystal Uptain CNM Work Phone: [employer]. Start: 02-03-2023 End: 02-03-2023 Orders Crystal Uptain CNM Work Phone: [employer]. Start: 11-01-2022 End: 11-01-2022 Orders Crystal Uptain CNM Work Phone: [employer]. Start: 07-23-2022 End: 07-23-2022 Orders Crystal Uptain CNM Work Phone: [employer]. Start: 06-18-2022 End: 06-18-2022 Orders Crystal Uptain CNM Work Phone: [employer]. Start: 05-26-2022 End: 05-26-2022 Orders Crystal Uptain CNM Work Phone: [employer]. Start: 05-24-2022 End: 05-24-2022 Annotation/Addendum Crystal Uptain CNM Work Phone: [employer]. Start: 05-21-2022 End: 05-21-2022 Office outpatient new 30 minutes Crystal Uptain CNM Work Phone: [employer] Start: 11-28-2018 End: 11-28-2018 Patient encounter procedure SHRAVAN JIMENEZ [facility] Start: 04-19-2017 Ambulatory [facility] Start: 04-19-2017 End: 04-19-2017 Ambulatory [facility] Start: 03-18-2017 End: 03-21-2017 Ambulatory [facility] Start: 03-02-2017 End: 03-02-2017 Ambulatory GERARDO BLAS [facility] Procedures Date Procedure Procedure Detail Performing Clinician Start: 05-21-2022 End: 05-21-2022 No Known Past Surgical History Pablito Arreola RN Plan of Treatment Date Care Activity Detail Author Start: 05-25-2024 Assay of progesterone PROGESTERONE (88017) Start: 25-May-2024 10:20-04:00 Request [employer]. Start: 05-24-2024 Assay of progesterone PROGESTERONE (76519) Start: 24-May-2024 11:51-04:00 Request [employer] [employer]. Start: 05-26-2022 Col-chr/ms nondrug analyte flaco qual/juan carlos ea spec Iodine Serum (15952) Start: 26-May-2022 11:2904:00 Request [employer]. Start: 05-26-2022 Assay of triiodothyronine t3 free FREE TRIIDOTHYRONINE (T3) (18299) Start: 26-May-2022 11:2904:00 Request [employer] [employer]. Start: 05-26-2022 Assay of free thyroxine THYROXINE (T4) FREE (74269) Start: 26-May-2022 11:2904:00 Request [employer] [employer]. Social History Date Type Detail Facility Female [employer]; [employer] Work Phone: Tobacco smoking consumption unknown [employer]; [employer] Work Phone: Spouse Spouse [employer]; [employer] NEGATED: Highlighted row No Social History Information Available No Social History Information Available [employer]; [employer] Work Phone: Summary Purpose Family History No Family History Records FoundNo Family History Records FoundNo Family History Records FoundNo Family History Records Found Advance Directives No Advanced Directives Records FoundNo Advanced Directives Records FoundNo Advanced Directives Records FoundNo Advanced Directives Records Found Additional Source Comments INFORMATION SOURCE (unrecogn ized section and content) DATE CREATED AUTHOR 02/01/2018 [facility] DATE CREATED AUTHOR AUTHOR'S ORGANIZ ATION 11/16/2018 [facility] DATE CREATED AUTHOR AUTHOR'S ORGANIZ ATION 11/28/2018 [facility] DATE CREATED AUTHOR AUTHOR'S ORGANIZ ATION 05/27/2024 [facility] FOR RECORDS PERTAINING TO PATIENTS WHO ARE OR HAVE BEEN ENROLLED IN A CHEMICAL DEPENDENCY/SUBSTANCEABUSE PROGRAM, SOME INFORMATION MAY BE OMITTED. This clinical summary was aggregated from multiple sources. Caution should be exercised in using it in the provision of clinical care. This summary normalizes information from multiple sources, and as a consequence, information in this document may materially change the coding, format and clinical context of patient data. In addition, data may be omitted in some cases. CLINICAL DECISIONS SHOULD BE BASED ON THE PRIMARY CLINICAL RECORDS. [facility], [facility]. provides no warranty or guarantee of the accuracy or completeness of information in this document.
[2024-06-08 13:08] LABS: PROGESTERONE 26.6 ng/mL (.)
== END | disposition home or self-care (01) ==
PROVIDERS: Referring Provider Midwife; Visit Provider Midwife
DX: O09.299 Supervision of pregnancy with other poor reproductive or obstetric history, unspecified trimester (principal); Z3A.00 Weeks of gestation of pregnancy not specified
CPT/HCPCS: 36415; 84144

== ENCOUNTER → 2024-06-21 | Outpatient (CLI) | payer SELFPAY ==
[2024-06-23 08:12] LABS: PROGESTERONE 37.3 ng/mL (.)
== END | disposition home or self-care (01) ==
PROVIDERS: Referring Provider Midwife; Visit Provider Midwife
DX: O09.299 Supervision of pregnancy with other poor reproductive or obstetric history, unspecified trimester (principal); Z3A.00 Weeks of gestation of pregnancy not specified
CPT/HCPCS: 36415; 84144